=== PATIENT | female | born 1980 | race Caucasian/White ===

== ENCOUNTER 2018-01-10 12:30 | Inpatient (IN) | payer MEDICAID ==
[~2018-01-10] VITALS: Ht 172.7 cm; Wt 67.6 kg
--- NOTE | 2018-01-10 12:38 | NUR ---
Patient ambulated to bed 8. RN evaluating patient at bedside.
[2018-01-10 12:40] VITALS: BP 114/89
--- NOTE | 2018-01-10 12:50 | NUR ---
37 yo female bib self for abdominal pain nausea and vomiting for three days. pt states consipation n/v, ruq pain, tender on palpation. pAIN 10/10. DENIES CP, SOB.
--- NOTE | 2018-01-10 12:51 | NUR ---
Dr. Boles evaluating patient at bedside.
[2018-01-10] MEDS ORDERED: NACL 0.9% 1,000 ML IV ONE ×2 (12:55→14:05)
[2018-01-10] MEDS ORDERED: MORPHINE SULFATE 4 MG/ML SYR IVP ONE ×2 (12:55→14:55)
[2018-01-10] MEDS ORDERED: ONDANSETRON 4 MG/2 ML VIAL IVP ONE ×2 (12:55→14:00)
--- NOTE | 2018-01-10 13:05 | NUR ---
lab at bedside
[2018-01-10 13:32] LABS: BASOPHILS % (AUTO) 0.3 % (0.0-2.0); EOSINOPHILS # (AUTO) 0.1 K/uL (0-0.4); EOSINOPHILS % (AUTO) 0.8 % (0.0-4.0); HEMATOCRIT 46.8 % (36-48); HEMOGLOBIN 15.3 g/dL (12.0-16.0); LYMPHOCYTES # (AUTO) 1.9 K/uL (2.5-16.5); LYMPHOCYTES % (AUTO) 15.8 % (20.5-51.1); MEAN CORPUSCULAR HEMOGLOBIN 28 pg (27-31); MEAN CORPUSCULAR HGB CONC 33 g/dL (33-37); MEAN CORPUSCULAR VOLUME 86.4 fL (80-94); MONOCYTES # (AUTO) 0.9 K/uL (0.8-1.0); MONOCYTES % (AUTO) 7.5 % (1.7-9.3); NEUTROPHILS # (AUTO) 9.1 K/uL (1.8-7.7); NEUTROPHILS % (AUTO) 75.6 % (42.2-75.2); PLATELET COUNT (AUTO) 204 K/uL (140-450); RED BLOOD CELL COUNT(AUTO) 5.41 MIL/uL (4.20-5.40); RED CELL DISTRIBUTION WIDTH 14.6 % (11.6-13.7)
[2018-01-10 13:44] LABS: ANION GAP 15.5 (8-16); CARBON DIOXIDE 25.8 mmol/L (21-32); CREATININE 0.8 mg/dL (0.6-1.3); POTASSIUM 3.3 mmol/L (3.5-5.1)
[2018-01-10 13:58] LABS: ALBUMIN 4.3 g/dL (3.4-5.0); TOTAL BILIRUBIN 0.4 mg/dL (0.0-1.0)
[2018-01-10] MEDS ORDERED: HYDROcodone/APAP 5/325 MG 1 TAB TAB PO PRN (14:10)
[2018-01-10] MEDS ORDERED: ZOLPIDEM 5 MG TAB PO PRN (14:10)
[2018-01-10] MEDS ORDERED: DOCUSATE SODIUM 100 MG GELCAP PO PRN (14:10)
[2018-01-10] MEDS ORDERED: LORazepam 2 MG/ML VIAL IM/IVP PRN (14:10)
--- NOTE | 2018-01-10 14:30 | NUR ---
PT WITH CO OF INCREASED ABD PAIN, ER MD MADE AWARE Addendum: 01/10/18 at 1541 by DORYS AWATING ORDERS
[2018-01-10] MEDS ORDERED: MORPHINE SULFATE 4 MG/ML SYR ONE (14:58)
--- NOTE | 2018-01-10 15:10 | NUR ---
PT ADMITTED TO TELE. BEDSIDE REPORT GIVEN BY ER NURSE ESTRELLA. PT AMBULATED TO BED FROM [facility]. WALKED WITH STEADY GAIT. PT'S AT BEDSIDE. APPLIED TELE MONITOR AND NON SKID SLIPPERS. VS: TEMP 97.6, HR 78, BP 136/93, RR 22, O2 SAT 97% ON RA. PT COMPLAINING OF ABD PAIN. NPO STATUS NOW. EDUCATED PT ON NPO. IV TO L AC 20G INTACT. NS AT 60ML/HR. MRSA SWAB DONE. CALL LIGHT WITHIN REACH. WILL CONTINUE TO MONITOR.
--- NOTE | 2018-01-10 15:10 | NUR ---
Patient will be admitted to care of DR SEYMOUR . Admited to TELE. Will go to room 104B . Belongings list completed. Report to LEROY JIMENEZ .
[2018-01-10 15:25] LABS: CHOL/HDL RATIO 2.7 (1-4.5); MAGNESIUM 1.8 mg/dL (1.8-2.4); PHOSPHORUS 2.7 mg/dL (2.5-4.9); THYROID STIMULATING HORMONE 1.2 uIU/mL (0.34-3.74)
[2018-01-10 15:41] LABS: PROTHROMBIN TIME 10.3 secs (10.8-13.4)
--- NOTE | 2018-01-10 15:56 | NUR ---
USED BALANCE RECESSER CLAUDETTE ID#[id number] TO GET PT'S MEDICAL HX. PT IS AAOX4. STATES HX OF HTN. NO SURGERIES. LBM WAS THIS MORNING. EDUCATED PT AGAIN ON NPO AND WAITING FOR SURGERY CONSULT. VERBALIZED UNDERSTANDING. CALL LIGHT WITHIN REACH. WILL CONTINUE TO MONITOR.
[2018-01-10 16:00] VITALS: BP 136/93
[2018-01-10] MEDS: NACL 0.9% 1,000 ML IV SCH (16:14)
--- NOTE | 2018-01-10 16:31 | NUR ---
REPORTED TO DR. ELLISON PT'S K 3.3 AND NO PAIN RELIEF SINCE MORPHINE AND NORCO. PT STILL NPO. WILL WAIT FOR ORDERS.
[2018-01-10] MEDS ORDERED: KETOROLAC 15 MG/ML VIAL ONE (17:05)
--- NOTE | 2018-01-10 18:30 | NUR ---
DR ALVAREZ CAME SURGERY CONSULT. OBTAINED CONSENT FORM BY PT. SAID PT CAN HAVE LOW FAT DIET DINNER TONIGHT AND WILL BE NPO AFTER MIDNIGHT.
--- NOTE | 2018-01-10 19:30 | NUR ---
ENDORSED PT TO HARNESS BUILDER NURSE TOO AT BEDSIDE FOR CONTINUITY OF CARE. PT'S AT BEDSIDE. PT IN STABLE CONDITION.
--- NOTE | 2018-01-10 19:35 | NUR ---
RECEIVED REPORT FROM BARBARA GAGE, PATIENT RESTING IN BED, AWAKE ALERT ORIENTED X4. NO S/S OF DISTRESS NOTED, RESPIRATION EVEN AND UNLABORED, IV PATENT AND INTACT, INFUSING FLUIDS WELL. CALL LIGHT WITHIN REACH, SAFETY MEASURE ENSURED, WILL CONTINUE TO MONITOR.
[2018-01-10 19:47] LABS: APPEARANCE,URINE CLEAR (CLEAR); BILIRUBIN,URINE NEGATIVE (NEGATIVE); BLOOD, URINE 3+ (NEGATIVE); COLOR,URINE YELLOW (YELLOW); LEUKOCYTE ESTERASE ,URINE NEGATIVE (NEGATIVE); NITRITE, URINE NEGATIVE (NEGATIVE); UGLUCOSE NEGATIVE (NEGATIVE)
[2018-01-10 19:59] LABS: BARBITURATE, URINE NEG. ng/ml (NEG <=200); BENZODIAZEPINE, URINE NEG. ng/mL (NEG <=200); CANNABINOID, URINE NEG. ng/mL (NEG <=50); COCAINE, URINE NEG. ng/mL (NEG <=300); OPIATE, URINE POS. ng/mL (NEG <=2000); PHENCYCLIDINE SCREEN,URINE NEG. ng/mL (NEG <=25)
[2018-01-10 20:00] VITALS: BP 109/69
[2018-01-10 20:02] LABS: RBC,URINE 80-100 /HPF (0-5); WBC,URINE 6-15 (FEW) /HPF (0-5)
[2018-01-10] MEDS: LEVOFLOXACIN 750 MG/D5W PREMIX 150 ML IV SCH (20:28)
[2018-01-10] MEDS: LACTOBACILLUS RHAMNOSUS GG 1 EACH CAP PO SCH (20:49)
[2018-01-10] MEDS ORDERED: LACTOBACILLUS RHAMNOSUS GG 1 EACH CAP PO SCH (21:00)
[2018-01-10] MEDS ORDERED: POTASSIUM CHLORIDE 10 MEQ TABER PO SCH (21:00)
[2018-01-10] MEDS: metroNIDAZOLE 500 MG/NS PREMIX 100 ML IV SCH (21:27)
--- NOTE | 2018-01-10 21:32 | NUR ---
DUE MEDICATION GIVEN, PATIENT TOLERATED WELL. NO S/S OF DISTRESS NOTED, RESPIRATION EVEN AND UNLABORED, ON ROOM AIR. CALL LIGHT WITHIN REACH, SAFETY MEASURE ENSURED, WILL CONTINUE TO MONITOR.
[2018-01-10] MEDS: KETOROLAC 15 MG/ML VIAL IVP PRN (23:34)
[2018-01-10] MEDS: ONDANSETRON 4 MG/2 ML VIAL IM/IVP PRN (23:34)
[2018-01-10 23:43] VITALS: BP 122/78
--- NOTE | 2018-01-10 23:45 | NUR ---
PATIENT STATED NAUSEA AND PAIN /10. BP 122/78 HR 78, ZOFRAN AND TORADOL ADMINISTERED ORDERED. CALL LIGHT WITHIN REACH, SAFETY MEASURE ENSURED, WILL CONTINUE TO MONITOR.
--- NOTE | 2018-01-11 02:41 | NUR ---
PATIENT IS SLEEPING. NO S/S OF DISTRESS NOTED, RESPIRATION EVEN AND UNLABORED, CALL LIGHT WITHIN REACH, SAFETY MEASURE ENSURED, WILL CONTINUE TO MONITOR.
[2018-01-11] MEDS: metroNIDAZOLE 500 MG/NS PREMIX 100 ML IV SCH ×4 (04:10→22:35)
[2018-01-11 04:15] VITALS: BP 111/79
[2018-01-11] MEDS: KETOROLAC 15 MG/ML VIAL IVP PRN (05:34)
[2018-01-11] MEDS: NACL 0.9% 1,000 ML IV SCH (05:36)
--- NOTE | 2018-01-11 05:40 | NUR ---
TORADOL GIVEN ORDERED FOR PAIN 12/06. PATIENT TOLERATED WELL.
[2018-01-11] MEDS: ONDANSETRON 4 MG/2 ML VIAL IM/IVP PRN ×2 (05:46→14:31)
[2018-01-11 05:49] LABS: BASOPHILS # (AUTO) 0.1 K/uL (0.00-0.22); BASOPHILS % (AUTO) 0.5 % (0.0-2.0); EOSINOPHILS # (AUTO) 0.1 K/uL (0-0.4); EOSINOPHILS % (AUTO) 0.8 % (0.0-4.0); HEMATOCRIT 39.6 % (36-48); HEMOGLOBIN 12.8 g/dL (12.0-16.0); LYMPHOCYTES # (AUTO) 1.6 K/uL (2.5-16.5); LYMPHOCYTES % (AUTO) 10.8 % (20.5-51.1); MEAN CORPUSCULAR HEMOGLOBIN 28 pg (27-31); MEAN CORPUSCULAR HGB CONC 32 g/dL (33-37); MEAN CORPUSCULAR VOLUME 86.7 fL (80-94); MONOCYTES # (AUTO) 1.5 K/uL (0.8-1.0); MONOCYTES % (AUTO) 10.1 % (1.7-9.3); NEUTROPHILS # (AUTO) 11.6 K/uL (1.8-7.7); NEUTROPHILS % (AUTO) 77.8 % (42.2-75.2); PLATELET COUNT (AUTO) 176 K/uL (140-450); RED BLOOD CELL COUNT(AUTO) 4.57 MIL/uL (4.20-5.40); RED CELL DISTRIBUTION WIDTH 14.3 % (11.6-13.7); WHITE BLOOD COUNT (AUTO) 14.9 K/uL (4.8-10.8)
--- NOTE | 2018-01-11 06:22 | NUR ---
PATIENT SAID SHE IS ON HER PERIOD NOW.
[2018-01-11 06:30] LABS: ALBUMIN 3.3 g/dL (3.4-5.0); ANION GAP 7.6 (8-16); CARBON DIOXIDE 25.2 mmol/L (21-32); CREATININE 0.8 mg/dL (0.6-1.3); MAGNESIUM 1.5 mg/dL (1.8-2.4); PHOSPHORUS 2.4 mg/dL (2.5-4.9); POTASSIUM 3.8 mmol/L (3.5-5.1); TOTAL BILIRUBIN 0.5 mg/dL (0.0-1.0)
[2018-01-11] MEDS ORDERED: MAG SULF 2000 MG/WATER PREMIX 100 ML IV ONE (07:15)
--- NOTE | 2018-01-11 07:21 | NUR ---
ENDORSED PLAN OF CARE TO DAY SHIFT, PATIENT IS IN STABLE CONDITION.
--- NOTE | 2018-01-11 07:22 | NUR ---
RECEIVED REPORT FROM BARN AND PROPERTY MANAGER NURSE AT BEDSIDE FOR CONTINUITY OF CARE. PATIENT RESTING IN BED, SLEEPING. ORIENTED X4. NO S/S OF DISTRESS NOTED, RESPIRATION EVEN AND UNLABORED, IV PATENT AND INTACT, INFUSING IVF WELL. SAFETY PRECAUTION IN PLACE, CALL LIGHT WITHIN REACH, WILL CONTINUE TO MONITOR PATIENT.
[2018-01-11] MEDS: MAGNESIUM SULFATE 1GM in DEXTROSE 5% 100 ML PREMIX IV SCH ×2 (07:41→08:49)
--- NOTE | 2018-01-11 07:41 | NUR ---
ORDERED MEDICATIONS GIVEN. PATIENT TOLERATING IT WELL. NO SIGNS OF DISTRESS OR SOB NOTED ON ROOM AIR. PATIENT DENIES PAIN AT THE MOMENT. SAFETY PRECAUTION IN PLACE, CALL LIGHT WITHIN REACH, WILL CONTINUE TO MONITOR PATIENT.
[2018-01-11 08:00] VITALS: BP 105/72
--- NOTE | 2018-01-11 08:49 | NUR ---
UPDATED THE BOARD, VERBALIZED PLAN OF CARE WITH PATIENT. PATIENT VERBALIZED UNDERSTANDING. ORDERED MEDICATIONS GIVEN. PATIENT TOLERATING IT WELL. NO SIGNS OF DISTRESS OR SOB NOTED ON ROOM AIR. PATIENT DENIES PAIN AT THE MOMENT. SAFETY PRECAUTION IN PLACE, CALL LIGHT WITHIN REACH, WILL CONTINUE TO MONITOR PATIENT.
[2018-01-11] MEDS: SODIUM PHOS / POTASSIUM PHOS 1 PKT PDR PO SCH ×3 (09:00→17:38)
[2018-01-11] MEDS: LACTOBACILLUS RHAMNOSUS GG 1 EACH CAP PO SCH (09:00)
--- NOTE | 2018-01-11 09:17 | NUR ---
PATIENT HAS BEEN SCREENED AND CATEGORIZED MODERATE NUTRITION RISK. PATIENT WILL BE SEEN WITHIN 3-5 DAYS OF ADMISSION. 01/13/18 01/15/[address]
--- NOTE | 2018-01-11 10:00 | NUR ---
Enterprise Application Administrator Notes: I call [facility] at I spoke to Caitlin from admissions to discuss and gather information about patient. According to Caitlin Patient is been in their facility since 12/13 and will like to take patient back when he is ready and clear for a discharge from [facility]. Per Caitlin Patient has no issues with his medication and has all special equipment from their facility. 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 Per Caitlin Patient has his dialysis at [facility] dialysis on Tuesdays, , and Saturdays. I informed Caitlin that patient may be discharge today and that I will be sending his Clinical information shortly. Caitlin agreed and stated that she will be reviewing patient's information and will give me a follow up call with room number and accepting MD. I thanked her for her information I ended the call Addendum: 01/11/18 at 1236 by Madhuri Allen CM Enterprise Application Administrator Notes: Please disregard this note Wrong Patient
[2018-01-11] MEDS: BUPIVACAINE-MPF 0.25% 30 ML VIAL INJ ONE (10:21)
--- NOTE | 2018-01-11 10:24 | NUR ---
PATIENT WHEELED OFF FLOOR BY OR NURSE TO PROCEDURE WITH DR. ALVAREZ. PATIENT IN STABLE CONDITION.
[2018-01-11] MEDS ORDERED: fentaNYL 0.05 MG/ML VIAL ONE (10:33)
[2018-01-11] MEDS ORDERED: MIDAZOLAM 2 MG/2 ML VIAL ONE (10:45)
[2018-01-11] MEDS ORDERED: PROPOFOL 200 MG/20 ML VIAL IV ONE (11:02)
[2018-01-11] MEDS ORDERED: PHENYLEPHRINE 10 MG/ML VIAL IV ONE (11:02)
[2018-01-11] MEDS ORDERED: ONDANSETRON 4 MG/2 ML VIAL IVP ONE (11:02)
[2018-01-11] MEDS ORDERED: SUCCINYLCHOLINE CHLORIDE 200 MG/10 ML VIAL IV ONE (11:02)
[2018-01-11] MEDS ORDERED: ROCURONIUM 50 MG/5 ML VIAL IV ONE (11:02)
[2018-01-11] MEDS ORDERED: GLYCOPYRROLATE 0.2 MG/ML VIAL IV ONE (11:02)
[2018-01-11] MEDS ORDERED: DEXAMETHASONE 4 MG/ML VIAL IVP ONE (11:02)
[2018-01-11] MEDS ORDERED: LIDOCAINE MPF 2% 100 MG/5 ML VIAL INJ ONE (11:02)
[2018-01-11] MEDS ORDERED: KETOROLAC 30 MG/ML VIAL IVP ONE (11:02)
[2018-01-11] MEDS ORDERED: DESFLURANE 240 ML BTL INH ONE (11:02)
[2018-01-11] MEDS ORDERED: ONDANSETRON 4 MG/2 ML VIAL IVP PRN (11:30)
[2018-01-11] MEDS ORDERED: HYDROmorphone 1 MG/ML AMP IVP PRN (11:30)
--- NOTE | 2018-01-11 11:40 | NUR ---
PATIENT'S AND SON IN PATIENT'S ROOM. INFORMED THEM OF HER STATUS. THEY VERBALIZED UNDERSTANDING.
[2018-01-11] MEDS ORDERED: THROMBIN KIT 20 MU VIAL TP ONE (12:39)
[2018-01-11] MEDS: DEXT 5% / NACL 0.45% 1,000 ML IV SCH ×2 (13:25→23:25)
[2018-01-11] MEDS ORDERED: MORPHINE SULFATE 4 MG/ML SYR IVP PRN (13:25)
--- NOTE | 2018-01-11 14:05 | NUR ---
PATIENT BACK FROM RECOVERY. AND SON AT BEDSIDE.
--- NOTE | 2018-01-11 14:31 | NUR ---
PATIENT MOANING IN PAIN, MORPHINE PRN GIVEN. PATIENT TOLERATED IT WELL. AFTER ADMINISTERING MORPHINE, PATIENT C/O OF SOME NAUSEA. ZOFRAN PRN GIVEN. PATIENT TOLERATED THAT WELL. SAFETY PRECAUTION IN PLACE, CALL LIGHT WITHIN REACH, WILL CONTINUE TO MONITOR PATIENT.
--- NOTE | 2018-01-11 14:39 | NUR ---
PATIENT AMBULATED SLOWLY WITH HELP FROM AND RN TO THE BATHROOM. PATIENT VOIDED.
--- NOTE | 2018-01-11 15:55 | NUR ---
PATIENT MOANING AND THRASHING IN PAIN, PATIENT MEDICATED FOR PAIN WITH PRN PAIN MEDICATION. PATIENT TOLERATING IT WELL. NO SIGNS OF DISTRESS OR SOB NOTED ON ROOM AIR. RESPIRATIONS EVEN AND UNLABORED. SAFETY PRECAUTION IN PLACE, CALL LIGHT WITHIN REACH, WILL CONTINUE TO MONITOR PATIENT.
[2018-01-11 16:00] VITALS: BP 129/86
--- NOTE | 2018-01-11 17:40 | NUR ---
ORDERED MEDICATION GIVEN. PATIENT TOLERATED IT WELL. PATIENT SITTING UP IN BED EATING CLEAR LIQUID DINNER. PATIENT TOLERATING IT WELL. MOTHER AT BEDSIDE. NO COMPLAINTS OF NAUSEA AT THIS TIME. PATIENT STATES THAT PAIN IS TOLERABLE AND DOES NOT WANT ANY MEDICATION AT THE MOMENT. SAFETY PRECAUTION IN PLACE, CALL LIGHT WITHIN REACH, WILL CONTINUE TO MONITOR PATIENT.
[2018-01-11] MEDS ORDERED: MORPHINE SULFATE 2 MG/ML SYR IVP PRN (18:05)
--- NOTE | 2018-01-11 19:23 | NUR ---
REPORT GIVEN AT BEDSIDE TO SENIOR SVP NURSE FOR CONTINUITY OF CARE. PATIENT IN STABLE CONDITION.
--- NOTE | 2018-01-11 19:34 | NUR ---
RECEIVED REPORT FROM DAY SHIFT NURSE TRIXIE-RN AT BEDSIDE FOR CONTINUITY OF CARE. PT IS IN BED RESTING WITH FAMILY AT BEDSIDE -ORIENTED X4. NO S/S OF DISTRESS NOTED, RESPIRATION EVEN AND UNLABORED, IV PATENT AND INTACT, INFUSING IVF WELL. DISCUSSED PLAN OF CARE AND PT VERBALIZED UNDERSTANDING. WHITE BOARD UPDATED. PT C/O HEADACHE-WILL ADMINISTER TYLENOL. SAFETY PRECAUTION IN PLACE, CALL LIGHT WITHIN REACH, WILL CONTINUE TO MONITOR PATIENT.
--- NOTE | 2018-01-11 20:00 | NUR ---
VITAL SIGNS TAKEN AND TOLERATED WELL. WILL CONTINUE TO MONITOR.
[2018-01-11] MEDS: LEVOFLOXACIN 750 MG/D5W PREMIX 150 ML IV SCH (20:01)
[2018-01-11] MEDS: ACETAMINOPHEN 325 MG TAB PO PRN (20:01)
--- NOTE | 2018-01-11 20:05 | NUR ---
SCHEDULED MEDICATION GIVEN AND TOLERATED WELL. TYLENOL GIVEN FOR HEADACHE. NO S/S OF RESPIRATORY DISTRESS NOTED AT THIS TIME. WILL CONTINUE TO MONITOR.
--- NOTE | 2018-01-11 20:35 | NUR ---
SCHEDULED MEDICATION GIVEN AND TOLERATED WELL. NO S/S OF RESPIRATORY DISTRESS OR DISCOMFORT NOTED AT THIS TIME. WILL CONTINUE TO MONITOR. Addendum: 01/12/18 at 0504 by Madiha Taylor RN WRONG TIME. PLEASE DISREGARD.
--- NOTE | 2018-01-11 22:35 | NUR ---
SCHEDULED MEDICATION GIVEN AND TOLERATED WELL. NO S/S OF RESPIRATORY DISTRESS OR DISCOMFORT NOTED AT THIS TIME. WILL CONTINUE TO MONITOR.
[2018-01-12] VITALS: BP 111/82
--- NOTE | 2018-01-12 | NUR ---
VITAL SIGNS TAKEN AND TOLERATED WELL. NO S/S OF RESPIRATORY DISTRESS OR DISCOMFORT NOTED AT THIS TIME. WILL CONTINUE TO MONITOR.
--- NOTE | 2018-01-12 02:00 | NUR ---
PT SLEEPING AT THIS TIME. NO S/S OF RESPIRATORY DISTRESS OR DISCOMFORT NOTED AT THIS TIME. WILL CONTINUE TO MONITOR.
--- NOTE | 2018-01-12 04:00 | NUR ---
PT C/O BODY ACHES AND UNABLE TO REST. REQUESTING SOMETHING LIKE BENGAY OR ICY HOT FOR SHOULDER. REFUSED PAIN MEDICATION. WILL TALK WITH DR FOR ADITIONAL ORDERS.
[2018-01-12] MEDS: metroNIDAZOLE 500 MG/NS PREMIX 100 ML IV SCH (04:32)
[2018-01-12 07:22] LABS: BASOPHILS % (AUTO) 0.3 % (0.0-2.0); HEMATOCRIT 38.3 % (36-48); HEMOGLOBIN 12.6 g/dL (12.0-16.0); LYMPHOCYTES # (AUTO) 1.4 K/uL (2.5-16.5); LYMPHOCYTES % (AUTO) 9.2 % (20.5-51.1); MEAN CORPUSCULAR HEMOGLOBIN 28 pg (27-31); MEAN CORPUSCULAR HGB CONC 33 g/dL (33-37); MONOCYTES # (AUTO) 1.6 K/uL (0.8-1.0); MONOCYTES % (AUTO) 10.7 % (1.7-9.3); NEUTROPHILS # (AUTO) 12.1 K/uL (1.8-7.7); NEUTROPHILS % (AUTO) 79.8 % (42.2-75.2); PLATELET COUNT (AUTO) 164 K/uL (140-450); RED BLOOD CELL COUNT(AUTO) 4.45 MIL/uL (4.20-5.40); RED CELL DISTRIBUTION WIDTH 14.2 % (11.6-13.7); WHITE BLOOD COUNT (AUTO) 15.2 K/uL (4.8-10.8)
--- NOTE | 2018-01-12 07:29 | NUR ---
ENDORSED PT CARE TO DAY SHIFT NURSE LUIS FOR CONTINUITY OF CARE.
--- NOTE | 2018-01-12 07:30 | NUR ---
RECEIVED REPORT FROM FILER REPAIRER NURSE, PT IS SITTING UP IN BED, AAOX4, AMBULATORY, PT HAS IV ON LEFT AC, PATENT, INTACT, FLUSHING WELL, S/P LAP TYRA 01/11/18, NO S/S OF RESPIRATORY DISTRESS OR DISCOMFORT NOTED, CALL LIGHT IS WITHIN REACH, DISCUSSED PLAN OF CARE WITH PT, PT VERBALIZED UNDERSTANDING CALL LIGHT WITHIN REACH, WILL CONTINUE TO MONITOR.
[2018-01-12] MEDS ORDERED: CYCLOBENZAPRINE 10 MG TAB PO SCH (07:45)
[2018-01-12 08:00] VITALS: BP 120/87
[2018-01-12 08:04] LABS: ALBUMIN 3.2 g/dL (3.4-5.0); ANION GAP 15.6 (8-16); CARBON DIOXIDE 22.9 mmol/L (21-32); CREATININE 0.8 mg/dL (0.6-1.3); POTASSIUM 3.5 mmol/L (3.5-5.1); TOTAL BILIRUBIN 0.5 mg/dL (0.0-1.0)
[2018-01-12] MEDS: KETOROLAC 15 MG/ML VIAL IVP PRN (08:16)
--- NOTE | 2018-01-12 08:16 | NUR ---
DUE MEDICATION GIVEN, PT TOLERATED WELL, CALL LIGHT WITHIN REACH, WILL CONTINUE TO MONITOR.
[2018-01-12] MEDS: DEXT 5% / NACL 0.45% 1,000 ML IV SCH ×2 (08:18→19:25)
[2018-01-12] MEDS: SODIUM PHOS / POTASSIUM PHOS 1 PKT PDR PO SCH ×3 (08:25→17:04)
[2018-01-12] MEDS: LACTOBACILLUS RHAMNOSUS GG 1 EACH CAP PO SCH (08:25)
[2018-01-12 09:07] LABS: T4 (THYROXINE) 8.2 ug/dL (4.5-12.0)
--- NOTE | 2018-01-12 10:00 | NUR ---
PT SLEEPING IN BED AT THIS TIME, CALL LIGHT IS WITHIN REACH.
--- NOTE | 2018-01-12 10:30 | NUR ---
REMOVED IV DUE TO FLUID LEAKING. STARTED NEW IV, #22 LEFT AC, PATENT, FLUSHING WELL. PT TOLERATED WELL.
--- NOTE | 2018-01-12 11:10 | NUR ---
PT TAKEN OFF UNIT TO HAVE ERCP DONE. PT LEFT IN STABLE CONDITION
[2018-01-12] MEDS ORDERED: PROPOFOL 200 MG/20 ML VIAL IV ONE (11:20)
[2018-01-12] MEDS ORDERED: MIDAZOLAM 2 MG/2 ML VIAL ONE (11:30)
[2018-01-12] MEDS: PIPER/TAZO 3.375GM/D5W PREMIX 50 ML IV SCH ×2 (12:00→17:04)
[2018-01-12] MEDS: CYCLOBENZAPRINE 10 MG TAB PO SCH ×3 (13:00→17:04)
[2018-01-12] MEDS: BUPIVACAINE-MPF 0.25% 30 ML VIAL INJ ONE (13:02)
--- NOTE | 2018-01-12 13:10 | NUR ---
PT RETURNED TO UNIT. PT IS RESTING IN BED, DROWSY BUT EASILY AWAKEN, NO S/S OF RESPIRATORY DISTRESS OR DISCOMFORT NOTED, CALL LIGHT IS WITHIN REACH, WILL CONTINUE TO MONITOR.
[2018-01-12 16:00] VITALS: BP 124/75
--- NOTE | 2018-01-12 16:11 | NUR ---
PT SLEEPING IN BED AT THIS TIME, FAMILY IS AT BEDSIDE, CALL LIGHT IS WITHIN REACH.
--- NOTE | 2018-01-12 18:02 | NUR ---
PT IS RESTING IN BED, FAMILY IS AT BEDSIDE, CALL LIGHT IS WITHIN REACH.
--- NOTE | 2018-01-12 19:12 | NUR ---
REPORT GIVEN TO INTELLIGENCE ANALYST NURSE FOR CONTINUITY OF CARE. PT STABLE AT THIS TIME.
--- NOTE | 2018-01-12 19:13 | NUR ---
RECEIVED REPORT FROM DAY SHIFT NURSE JARON-RN AT BEDSIDE FOR CONTINUITY OF CARE. PT IS IN BED RESTING WITH FAMILY AT BEDSIDE -ORIENTED X4. NO S/S OF DISTRESS NOTED, RESPIRATION EVEN AND UNLABORED, IV ON LEFT AC #22G-PATENT AND INTACT, INFUSING IVF WELL. DISCUSSED PLAN OF CARE AND PT VERBALIZED UNDERSTANDING. WHITE BOARD UPDATED. SAFETY PRECAUTION IN PLACE, CALL LIGHT WITHIN REACH, WILL CONTINUE TO MONITOR PATIENT.
[2018-01-12 20:00] VITALS: BP 122/76
--- NOTE | 2018-01-12 20:00 | NUR ---
VITAL SIGNS TAKEN AND TOLERATED WELL. PT C/O PAIN 04/07-WILL ADMINISTER PAIN MEDICATION.
--- NOTE | 2018-01-12 20:20 | NUR ---
SCHEDULED MEDICATION GIVEN. PAIN MEDICATION GIVEN AND TOLERATED WELL. WILL CONTINUE TO MONITOR.
--- NOTE | 2018-01-12 22:00 | NUR ---
PT SLEEPING AT THIS TIME. NO S/S OF RESPIRATORY DISTRESS OR DISCOMFORT AT THIS TIME. WILL CONTINUE TO MONITOR.
[2018-01-13] VITALS: BP 118/82
--- NOTE | 2018-01-13 | NUR ---
VITAL SIGNS TAKEN AND TOLERATED WELL. NO S/S OF RESPIRATORY DISTRESS OR DISCOMFORT NOTED AT THIS TIME. WILL CONTINUE TO MONITOR.
[2018-01-13] MEDS: PIPER/TAZO 3.375GM/D5W PREMIX 50 ML IV SCH ×2 (00:23→05:21)
--- NOTE | 2018-01-13 00:25 | NUR ---
SCHEDULED MEDICATION ZOSYN GIVEN AND TOLERATED WELL. NO S/S OF RESPIRATORY DISTRESS OR DISCOMFORT NOTED AT THIS TIME. WILL CONTINUE TO MONITOR.
--- NOTE | 2018-01-13 02:00 | NUR ---
PT SLEEPING AT THIS TIME. NO S/S OF RESPIRATORY DISTRESS OR DISCOMFORT NOTED AT THIS TIME. WILL CONTINUE TO MONITOR.
--- NOTE | 2018-01-13 04:00 | NUR ---
PT CONTINUES TO SLEEP. NO S/S OF RESPIRATORY DISTRESS OR DISCOMFORT NOTED AT THIS TIME. WILL CONTINUE TO MONITOR.
[2018-01-13] MEDS: DEXT 5% / NACL 0.45% 1,000 ML IV SCH (05:21)
--- NOTE | 2018-01-13 05:25 | NUR ---
NEW BAG HUNG OF IVF WELL ALL SCHEDULED MEDICATION ZOSYN. PT TOLERATED WELL. NO S/S OF RESPIRATORY DISTRESS OR DISCOMFORT NOTED AT THIS TIME. WILL CONTINUE TO MONITOR.
--- NOTE | 2018-01-13 06:30 | NUR ---
DR. VERMA SPEAKING TO PT IN PT ROOM.
--- NOTE | 2018-01-13 06:49 | NUR ---
DR. VERMA RETURNED BACK TO PT ROOM AFTER DISCOVERING THAT PT A1C RESULTS CAME BACK INDICATING PRE-DIABETES. PT IS AWARE AND ADVISED TO HAVE A HEALTHIER DIET AND EXERCISE.
[2018-01-13] MEDS ORDERED: NACL 0.9% 1,000 ML IV SCH (06:50)
[2018-01-13] MEDS ORDERED: METR250T2 PO (07:04)
[2018-01-13] MEDS ORDERED: ACET-9525 PO (07:04)
[2018-01-13] MEDS ORDERED: LEVO750T2 PO (07:04)
[2018-01-13] MEDS ORDERED: METH500T18 PO (07:04)
[2018-01-13] MEDS ORDERED: CYCL10TA14 PO (07:04)
[2018-01-13] MEDS ORDERED: DOCU-299 PO (07:04)
[2018-01-13] MEDS ORDERED: LACT10CA PO (07:04)
[2018-01-13 07:15] LABS: BASOPHILS % (AUTO) 0.4 % (0.0-2.0); EOSINOPHILS # (AUTO) 0.1 K/uL (0-0.4); EOSINOPHILS % (AUTO) 0.7 % (0.0-4.0); HEMATOCRIT 37.1 % (36-48); HEMOGLOBIN 12.2 g/dL (12.0-16.0); LYMPHOCYTES # (AUTO) 2.8 K/uL (2.5-16.5); LYMPHOCYTES % (AUTO) 29.4 % (20.5-51.1); MEAN CORPUSCULAR HEMOGLOBIN 29 pg (27-31); MEAN CORPUSCULAR HGB CONC 33 g/dL (33-37); MEAN CORPUSCULAR VOLUME 86.7 fL (80-94); MONOCYTES # (AUTO) 1.1 K/uL (0.8-1.0); MONOCYTES % (AUTO) 11.7 % (1.7-9.3); NEUTROPHILS # (AUTO) 5.4 K/uL (1.8-7.7); NEUTROPHILS % (AUTO) 57.8 % (42.2-75.2); PLATELET COUNT (AUTO) 158 K/uL (140-450); RED BLOOD CELL COUNT(AUTO) 4.29 MIL/uL (4.20-5.40); RED CELL DISTRIBUTION WIDTH 14.4 % (11.6-13.7); WHITE BLOOD COUNT (AUTO) 9.4 K/uL (4.8-10.8)
--- NOTE | 2018-01-13 07:19 | NUR ---
ENDORSED PT CARE TO DAY SHIFT NURSE LUIS FOR CONTINUITY OF CARE.
--- NOTE | 2018-01-13 07:20 | NUR ---
RECEIVED REPORT FROM BEVEL MILL OPERATOR NURSE, PT IS SITTING UP IN BED, AAOX4, AMBULATORY, PT HAS IV ON LEFT AC, PATENT, INTACT, FLUSHING WELL, S/P LAP TYRA 01/11/18, NO S/S OF RESPIRATORY DISTRESS OR DISCOMFORT NOTED, CALL LIGHT IS WITHIN REACH, DISCUSSED PLAN OF CARE WITH PT, PT VERBALIZED UNDERSTANDING CALL LIGHT WITHIN REACH, WILL CONTINUE TO MONITOR.
[2018-01-13] MEDS ORDERED: metroNIDAZOLE 500 MG/NS PREMIX 100 ML IV SCH ×2 (07:30→13:00)
[2018-01-13 07:33] LABS: ANION GAP 9.7 (8-16); CARBON DIOXIDE 29.5 mmol/L (21-32); CREATININE 0.7 mg/dL (0.6-1.3); POTASSIUM 3.2 mmol/L (3.5-5.1)
[2018-01-13 07:38] LABS: MAGNESIUM 1.7 mg/dL (1.8-2.4)
[2018-01-13 08:00] VITALS: BP 102/66
[2018-01-13] MEDS: SODIUM PHOS / POTASSIUM PHOS 1 PKT PDR PO SCH (08:16)
[2018-01-13] MEDS: CYCLOBENZAPRINE 10 MG TAB PO SCH (08:17)
[2018-01-13] MEDS: LACTOBACILLUS RHAMNOSUS GG 1 EACH CAP PO SCH (08:17)
[2018-01-13] MEDS: ACETAMINOPHEN 325 MG TAB PO PRN (08:18)
[2018-01-13] MEDS ORDERED: IBUPROFEN 800 MG TAB PO PRN (08:20)
--- NOTE | 2018-01-13 08:20 | NUR ---
DUE MEDICATIONS GIVEN, PT TOLERATED WELL, CALL LIGHT IS WITHIN REACH, WILL CONTINUE TO MONITOR.
[2018-01-13] MEDS ORDERED: CALC-846 PO (08:24)
[2018-01-13] MEDS ORDERED: IBUP-2217 PO (08:24)
[2018-01-13] MEDS ORDERED: MAG400 PO (08:24)
[2018-01-13] MEDS ORDERED: POTASSIUM CHLORIDE 10 MEQ TABER PO SCH (09:00)
[2018-01-13] MEDS ORDERED: CALCIUM CARB/VIT-D 500 MG/200 IU 1 TAB PO SCH (09:00)
[2018-01-13] MEDS ORDERED: METHOCARBAMOL 500 MG TAB PO SCH (09:00)
[2018-01-13] MEDS ORDERED: MAGNESIUM OXIDE 400 MG TAB PO SCH (09:00)
--- NOTE | 2018-01-13 10:30 | NUR ---
PT SITTING UP IN BED, WATCHING TV, NO S/S OF RESPIRATORY DISTRESS OR DISCOMFORT NOTED.
--- NOTE | 2018-01-13 13:30 | NUR ---
DISCHARGE INSTRUCTIONS GIVEN, IV REMOVED, CATHETER TIP INTACT, ID WRIST BAND REMOVED. PT STABLE UPON DISCHARGE ACCOMPANIED BY HER FAMILY.
== END 2018-01-13 13:30 | disposition home or self-care (01) | DRG 710 ==
LOC: MED 12:30 → MTU 14:19
PROVIDERS: ADMIT Family Medicine; ATTEND Family Medicine
PROC: BF131ZZ Fluoroscopy of Gallbladder and Bile Ducts using Low Osmolar Contrast (ICD-10-PCS; 2018-01-11)
PROC: 0FT44ZZ Resection of Gallbladder, Percutaneous Endoscopic Approach (ICD-10-PCS; principal; 2018-01-11 10:30)
PROC: 0F798ZZ Dilation of Common Bile Duct, Via Natural or Artificial Opening Endoscopic (ICD-10-PCS; 2018-01-13)
PROC: 0FC98ZZ Extirpation of Matter from Common Bile Duct, Via Natural or Artificial Opening Endoscopic (ICD-10-PCS; 2018-01-13)
DX: A41.9 Sepsis, unspecified organism (principal); K80.62 Calculus of gallbladder and bile duct with acute cholecystitis without obstruction; K82.1 Hydrops of gallbladder; E44.1 Mild protein-calorie malnutrition; E87.1 Hypo-osmolality and hyponatremia; E83.42 Hypomagnesemia; K83.8 Other specified diseases of biliary tract; I10 Essential (primary) hypertension; E83.39 Other disorders of phosphorus metabolism; E87.6 Hypokalemia; N39.0 Urinary tract infection, site not specified; Z68.22 Body mass index [BMI] 22.0-22.9, adult; E66.9 Obesity, unspecified
CPT/HCPCS: 36415; 71045; 74330; 76705; 77003; 80048; 80053; 80305; 81001; 81025; 82140; 82550; 83036; 83690; 83735; 83880; 84100; 84134; 84436; 84443; 84484; 85025; 85610; 85730; 86886; 86900; 86901; 87040; 87081; 87086; 88304; 96374; 96375; 96376; 99285; C1727; C1769; C1887; J0330; J1100; J1170; J1644; J1885; J1956; J2001; J2250; J2270; J2370; J2405; J2543; J2704; J3010; J3490; J7030; Q0092